=== PATIENT | male | born 1955 | race Asian ===

== ENCOUNTER 2016-10-25 16:52 | Inpatient (IN) | payer SELFPAY ==
[2016-10-24 04:15] VITALS: BP 120/75
[~2016-10-25] VITALS: Ht 175.3 cm; Wt 68.0 kg
--- NOTE | 2016-10-25 16:30 | NUR ---
Report and patient received via emergency personnel. Patient arrived to unit via gurney, in no signs of acute distress. Respirations even and unlabored, no verbalized needs at this time. VS WNL, on RA, AAOx3. Oriented to surroundings and environment. Safety and fall precautions maintained, call light placed within reach. No other needs at this time. Orders placed by Dr. Gutierrez. Dr. Celestine Malik contacted via [employer] hotline, no answer as of now. Will continue to reach out via [employer] hotline.
[2016-10-25] MEDS ORDERED: Z GUARD REMEDY PASTE 57 GM TUBE TOP PRN (17:00)
--- NOTE | 2016-10-25 17:00 | NUR ---
Attempted to reach out to Dr. Celestine Malik for 2nd call regarding medication reconciliation via [employer] group hotline phone number. No answer per hotline, page sent to Dr. Patient in stable condition, no signs of acute distress noted.
[2016-10-25] MEDS ORDERED: NICO1PAT27 TD (17:11)
[2016-10-25] MEDS ORDERED: ASPI-605 PO (17:11)
[2016-10-25] MEDS ORDERED: LISI10TA5 PO (17:11)
[2016-10-25] MEDS ORDERED: HYDR-4075 IVP (17:11)
[2016-10-25] MEDS ORDERED: ALPR0.255 PO (17:11)
[2016-10-25] MEDS ORDERED: ATOR80TA PO (17:11)
[2016-10-25] MEDS ORDERED: LORA0.5T IVP (17:11)
[2016-10-25] MEDS ORDERED: ENOX40DI SQ (17:11)
--- NOTE | 2016-10-25 17:30 | NUR ---
Called house painting instructor Jigna regarding no response from Dr. Celestine Malik about medication reconciliation. [facility] Called hotline for a 3rd attempt to reach the for medication reconciliation. No answer per hotline financial services representative. Page sent out to Dr. Sprague.
--- NOTE | 2016-10-25 18:00 | NUR ---
[facility] group hotline called for a 4th attempt to reach Dr. Celestine Malik regarding medication reconciliation. No answer per hotline strategic partnership representative, page sent out to Dr. Patient in no signs of acute distress, VS WNL. Respirations even and unlabored. Family observed at bedside. No other verbalized needs at this time.
--- NOTE | 2016-10-25 18:30 | NUR ---
[facility] group hotline called for a 5th attempt to reach Dr. Celestine Malik regarding medication reconciliation. No answer per hotline labor service representative, page sent out to
--- NOTE | 2016-10-25 19:30 | NUR ---
Patient is a new admission. Received report from BRITTANY Aguillon. Received patient sitting up in bed on his laptop. Patient is alert, oriented to name and place and able to make needs known. Denies any pain and discomfort at this time. No acute distress. No SOB. Patient is on room air. Patient with diagnosis of R CVA. Left side is affected. Left upper extremity is severely weak. Unable to lift left arm. Left lower extremity is slightly weak. Able to lift left lower leg and move toes with no apparent problems. Noted with left side facial droop. Patient also noted with multiple scabs and bruising on right lower extremity. Dr. Claire in facility. Made aware of medications needing to be reconciled because according to day shift nurse, they were unable to get a hold of Dr. Malik to reconcile medications. Dr. Claire also examined patient. While speaking to patient, patient noted with poor concentration. Patient on laptop and not really paying attention to MD. Asked patient if he can stop what he is doing for now so we can better assess him. Patient is aware of where he is and what happened to him. He is noted to have poor concentration and needs further instructions. Verbalized to patient to use call light when help is needed and showed him what button to press. Patient verbalizes understanding, but forgets to call for help when getting up. Reinforcement provided to patient. All needs attended to promptly. Call light within reach. Will continue to monitor.
[2016-10-25 21:27] VITALS: BP 123/76
[2016-10-25] MEDS: ALPRAZOLAM 0.25 MG TABLET PO SCH (21:40)
[2016-10-25] MEDS: ATORVASTATIN 40 MG TABLET PO SCH (21:40)
--- NOTE | 2016-10-25 21:40 | NUR ---
Patient still awake. Sitting up in bed on his Ipad. Gave his PM medcations. Tolerated well. Patient is on Full liquieds with nectar thick liquids. All needs attended to promptly. Call light within reach. Will continue to monitor.
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
--- NOTE | 2016-10-26 | NUR ---
Patient is asleep and comfortable at this time. Will continue to monitor.
--- NOTE | 2016-10-26 06:55 | NUR ---
Patient still asleep at this time. No acute distress. No SOB. Breathing normally. Kept clean and dry. All needs attended to promptly. Call light within reach. Will continue to monitor.
[2016-10-26 07:02] LABS: BASOPHILS # (AUTO) 0.1 K/uL (0.0-8.0); BASOPHILS % (AUTO) 0.6 % (0.0-2.0); EOSINOPHILS # (AUTO) 0.4 K/uL (0.0-0.7); EOSINOPHILS % (AUTO) 3.6 % (0.0-7.0); HEMATOCRIT 43.7 % (40-50); HEMOGLOBIN 15.2 G/DL (14.0-18.0); LYMPHOCYTES # (AUTO) 1.8 K/UL (0.8-4.8); MEAN CORPUSCULAR HEMOGLOBIN 32.5 UUG (27.0-31.0); MEAN CORPUSCULAR HGB CONC 35 g/dL (32.0-37.0); MEAN CORPUSCULAR VOLUME 93.6 FL (82.0-92.0); MONOCYTES # (AUTO) 0.7 K/UL (0.1-1.30); MONOCYTES % (AUTO) 6.2 % (0.0-11.0); NEUTROPHILS # (AUTO) 7.6 K/UL (1.8-8.9); NEUTROPHILS % (AUTO) 72.6 % (38.5-71.5); PLATELET COUNT (AUTO) 394 K/UL (150-450); RED BLOOD CELL COUNT(AUTO) 4.67 MIL/UL (4.7-6.1); WHITE BLOOD COUNT (AUTO) 10.6 K/UL (4.0-11.2)
--- NOTE | 2016-10-26 07:30 | NUR ---
SPEECH THERAPIST WORKING WITH PATIENT THIS MORNING WITH BREAKFAST.
[2016-10-26 07:35] LABS: CREATININE 0.9 mg/dL (0.6-1.3); MAGNESIUM 1.9 mg/dL (1.8-2.4); PHOSPHOROUS 3.8 mg/dL (2.5-4.9)
[2016-10-26 08:00] VITALS: BP 126/75
[2016-10-26] MEDS: ALPRAZOLAM 0.25 MG TABLET PO SCH ×2 (08:53→21:23)
[2016-10-26] MEDS: ASPIRIN EC 81 MG TABLET.DR PO SCH (08:53)
[2016-10-26] MEDS ORDERED: Medication Not On Formulary EA (Atorvastatin Calcium (Lipitor) 80 MG) PO SCH (09:00)
[2016-10-26] MEDS: LISINOPRIL 10 MG TABLET PO SCH (09:01)
[2016-10-26] MEDS: ENOXAPARIN SODIUM 40 MG/0.4 ML DISP.SYRIN SQ SCH (09:10)
--- NOTE | 2016-10-26 09:20 | NUR ---
PATIENT SITTING AT BEDSIDE ON HIS COMPUTER. PATIENT IS ABLE TO TAKE MEDS CRUSHED SLOWLY.
--- NOTE | 2016-10-26 09:35 | NUR ---
PATIENT IS WALKING AROUND UNIT WITH PT.
--- NOTE | 2016-10-26 09:41 | NUR ---
PT RECOMMEND THAT PATIENT CHANGE ROOM TO APPROACH AND STIMULATE PATIENT ON LEFT SIDE. INFORM CHARGE NURSE PER PT RECOMMENDATIONS.
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
--- NOTE | 2016-10-26 11:57 | NUR ---
Initiated bed transfer as recommended by gardenia campbellhouse detective and qian case repairer. all belongings transferred by PROPAGATION WORKER. moved patient because goes up on his on and unsteady. will follow up with family about bed transfer and recommendations.
--- NOTE | 2016-10-26 15:08 | NUR ---
IDT MEETING 10/26/16
--- NOTE | 2016-10-26 17:42 | NUR ---
Patient sleeping for the past 2 hours. patient now has the dinner tray at bedside try to encourage him to eat. he states he is tired he needs to sleep. ordered patient a sandwich for tonight in case patient gets hungry. Son informed me that he was eating 100% of food in previous hospital.
--- NOTE | 2016-10-26 19:30 | NUR ---
Received report from BRITTANY Ta. Received patient in bed. Son at bedside. Patient is alert and verbally responsive. On phone with with family at this time. Patient in no acute distress. No SOB. Patient on room air. Denies any pain and discomfort at this time. Kept clean and dry. All needs attended to promptly. Call light within reach. Will continue to monitor.
[2016-10-26 20:28] VITALS: BP 112/63
[2016-10-26] MEDS: ATORVASTATIN 40 MG TABLET PO SCH (21:22)
--- NOTE | 2016-10-27 00:52 | NUR ---
Patient noted to be very restless. Tossing and turning in bed and unable to get sleep. Dr. Gutierrez made aware with new orders fro Temazepam 15mg PoO QHS PRN. New orders noted and carried out. Son made aware of sleeping aide. Verbalizes he is okay with medication to help father get some rest. All needs attended to promptly. Call light within reach. Will continue to monitor.
--- NOTE | 2016-10-27 01:00 | NUR ---
Patient actually sleeping well at this time. PRN Temazepam not given. No restlessness noted. All needs attended to promptly. Call light within reach. Will continue to monitor patient.
--- NOTE | 2016-10-27 06:58 | NUR ---
Patient still asleep at this time. No acute distress. No SOB. Patient breathing normally. All needs attended to promptly. Call light within reach. Will continue to monitor.
[2016-10-27 07:52] VITALS: BP 103/60
--- NOTE | 2016-10-27 09:00 | NUR ---
RECEIVED PATIENT ASLEEP. NO S/S OF DISTRESS. CALL LIGHT WITHIN REACH. SIDE RAILS UP X 2
--- NOTE | 2016-10-27 09:30 | NUR ---
ENCOURAGED PATIENT TO VERBALIZE NEEDS AND CALL FOR HELP OR WHEN GOING TO THE BATHROOM. ALERT AND ORIENTED. NO COMPLAINTS OF PAIN OR DISCOMFORT AT THIS TIME.
[2016-10-27] MEDS: ALPRAZOLAM 0.25 MG TABLET PO SCH ×2 (09:53→17:37)
[2016-10-27] MEDS: ASPIRIN EC 81 MG TABLET.DR PO SCH (09:54)
[2016-10-27] MEDS: LISINOPRIL 10 MG TABLET PO SCH (09:54)
[2016-10-27] MEDS: NICOTINE 21 MG/24HR PATCH TD SCH (09:58)
[2016-10-27] MEDS: ENOXAPARIN SODIUM 40 MG/0.4 ML DISP.SYRIN SQ SCH (09:59)
--- NOTE | 2016-10-27 13:15 | NUR ---
TOLERATED LUNCH WELL. MRSA SWAB OF NARES DONE AND SENT TO LAB.
--- NOTE | 2016-10-27 20:00 | NUR ---
Patient in room A/Ox2 ambulating with stand by assist. Has left arm weakness. No distress noted. Provide comfort and safety measures
[2016-10-27 20:25] VITALS: BP 130/65
[2016-10-27] MEDS: ATORVASTATIN 40 MG TABLET PO SCH (20:56)
[2016-10-28 08:00] VITALS: BP 133/79
[2016-10-28] MEDS: ENOXAPARIN SODIUM 40 MG/0.4 ML DISP.SYRIN SQ SCH (09:45)
[2016-10-28] MEDS: NICOTINE 21 MG/24HR PATCH TD SCH (09:47)
[2016-10-28] MEDS: ALPRAZOLAM 0.25 MG TABLET PO SCH ×2 (09:50→17:38)
[2016-10-28] MEDS: LISINOPRIL 10 MG TABLET PO SCH (09:50)
[2016-10-28] MEDS: ASPIRIN EC 81 MG TABLET.DR PO SCH (09:51)
--- NOTE | 2016-10-28 19:30 | NUR ---
Patient resting on bed with no s/s of distress. No complaints of pain at this time. Son at bedside. Call light within reach. Will continue to monitor.
[2016-10-28 20:00] VITALS: BP 142/79
[2016-10-28] MEDS: ATORVASTATIN 40 MG TABLET PO SCH (21:28)
--- NOTE | 2016-10-29 07:07 | NUR ---
Patient slept well throughout the night. Sleeping at this time with no s/s of distress. No complaints of pain throughout the shift. Due meds given. Needs attended. Son stated that patient requests for a bath today. Call light kept within reach. Frequent checks done. Endorsed accordingly.
[2016-10-29 08:00] VITALS: BP 124/76
[2016-10-29] MEDS: LISINOPRIL 10 MG TABLET PO SCH (08:41)
[2016-10-29] MEDS: ALPRAZOLAM 0.25 MG TABLET PO SCH ×2 (08:42→17:00)
[2016-10-29] MEDS: ENOXAPARIN SODIUM 40 MG/0.4 ML DISP.SYRIN SQ SCH (08:42)
[2016-10-29] MEDS: ASPIRIN EC 81 MG TABLET.DR PO SCH (08:42)
[2016-10-29] MEDS: NICOTINE 21 MG/24HR PATCH TD SCH (08:44)
--- NOTE | 2016-10-29 19:30 | NUR ---
Patient resting in bed with no s/s of distress. Respirations even and unlabored. Verbalizes absence of pain at this time. Son at bedside. Call light within reach. Will continue to monitor.
[2016-10-29 20:48] VITALS: BP 143/86
[2016-10-29] MEDS: ATORVASTATIN 40 MG TABLET PO SCH (20:50)
--- NOTE | 2016-10-30 06:46 | NUR ---
Patient still sleeping. Slept well during the night. Not in any acute distress. Kept comfortable. Supervised during ambulation. Call light kept within reach. Frequent checks done. Needs attended. Due meds given. Endorsed accordingly.
[2016-10-30 08:00] VITALS: BP 122/76
[2016-10-30] MEDS: ASPIRIN EC 81 MG TABLET.DR PO SCH (08:55)
[2016-10-30] MEDS: ALPRAZOLAM 0.25 MG TABLET PO SCH ×2 (08:55→17:00)
[2016-10-30] MEDS: LISINOPRIL 10 MG TABLET PO SCH (08:56)
[2016-10-30] MEDS: NICOTINE 21 MG/24HR PATCH TD SCH (09:01)
[2016-10-30] MEDS: ENOXAPARIN SODIUM 40 MG/0.4 ML DISP.SYRIN SQ SCH (09:01)
--- NOTE | 2016-10-30 12:13 | NUR ---
TAX EXAMINER STATES THAT HE IS CONSTIPATED. PT GIVEN PRUNE JUICE AND WALKED WITH FAMILY. WILL CONTINUE TO MONITOR FOR COMPLICATIONS. PT GIVEN BLOOD PRESSURE MEDICATION. BLOOD PRESSURE WITHIN NORMAL LIMITS.
[2016-10-30] MEDS ORDERED: BISACODYL 10 MG SUPP.RECT RC PRN (15:15)
[2016-10-30] MEDS: BISACODYL 10 MG SUPP.RECT RC PRN ×2 (15:36→18:52)
[2016-10-30] MEDS ORDERED: FLEET ENEMA 133 ML BOTTLE RC PRN (19:30)
[2016-10-30] MEDS: ATORVASTATIN 40 MG TABLET PO SCH (21:16)
[2016-10-30] MEDS ORDERED: FLEET ENEMA 133 ML BOTTLE RC ONE (21:16)
[2016-10-31 08:00] VITALS: BP 123/64
[2016-10-31] MEDS: ASPIRIN EC 81 MG TABLET.DR PO SCH (08:48)
[2016-10-31] MEDS: ENOXAPARIN SODIUM 40 MG/0.4 ML DISP.SYRIN SQ SCH (08:52)
[2016-10-31] MEDS: LISINOPRIL 10 MG TABLET PO SCH (08:52)
[2016-10-31] MEDS: NICOTINE 21 MG/24HR PATCH TD SCH (08:53)
[2016-10-31] MEDS: ALPRAZOLAM 0.25 MG TABLET PO SCH ×2 (08:58→16:54)
--- NOTE | 2016-10-31 09:52 | NUR ---
pt refused xanax because pt states that he gets sleepy with med and wants to stay awake with therapy. pt intructed risks of not taking med. pt still refused. will continue to reasses for complications.
--- NOTE | 2016-10-31 17:32 | NUR ---
PT REFUSED XANAX IN THE MORNING. PT ADHERED TO THERAPY AND COMPLAINS OF NO PAIN. PT ALSO HAD A BOWEL MOVEMENT WITH FLUID CONSISTENTSY. PT PROVIDED COMFORT MEASURES. PT IS STILL IMPULSIVE BUT CAREGIVER PROVIDED SUPERVISION. PT STATES HE WANTS XANAX ON THE AFTERNOON. WILL CONTINUE TO ENDORSE MONITORING TO NEXT SHIFT NURSE.
--- NOTE | 2016-10-31 19:20 | NUR ---
Report received from BRITTANY Yeager. Found pt lying on bed correa's position, alert oriented x 3, ambulates independently, however still remind pt to call for assistance, or constantly check on him periodically.Pt has wound on his left knee, black scabbed, kept clean dry and intact.
--- NOTE | 2016-10-31 21:00 | NUR ---
Meds given : Lipitor 80mg/po.
[2016-10-31] MEDS: ATORVASTATIN 40 MG TABLET PO SCH (21:24)
--- NOTE | 2016-11-01 | NUR ---
Asleep and resting comfortably. Continue monitor.
--- NOTE | 2016-11-01 07:00 | NUR ---
Report to BRITTANY bird
[2016-11-01 08:00] VITALS: BP 119/72
[2016-11-01] MEDS: ALPRAZOLAM 0.25 MG TABLET PO SCH ×2 (08:37→17:00)
[2016-11-01] MEDS: ENOXAPARIN SODIUM 40 MG/0.4 ML DISP.SYRIN SQ SCH (08:43)
[2016-11-01] MEDS: NICOTINE 21 MG/24HR PATCH TD SCH (08:43)
[2016-11-01] MEDS: ASPIRIN EC 81 MG TABLET.DR PO SCH (08:43)
[2016-11-01] MEDS: LISINOPRIL 10 MG TABLET PO SCH (08:44)
--- NOTE | 2016-11-01 18:08 | NUR ---
Patient in bed. Patient is alert and oriented x3-4. Patient speaks little Spanish, but can comprehend simple Spanish and can let you know what his needs are. Patient has a caregiver at bedside. No anxiety noted all throughout shift. Patient still has left sided weakness. Physical therapy is working with patient, as well as, speech and occupational therapy. Patient on a mechanical soft diet, tolerating well. No signs and symptoms of aspiration and/or difficulty swallowing noted. Vital signs all within reach. No complaints of pain/discomfort, at this time. Will continue to monitor.
--- NOTE | 2016-11-01 19:30 | NUR ---
SITTING ON BED WITH FAMILY MEMBERS AT BEDSIDE. NO ACUTE DISTRESS NOTED. NO COMPLAINTS OF PAIN NOR DISCOMFORT. NEEDS ATTENDED. WILL CONTINUE TO MONITOR
[2016-11-01] MEDS: ATORVASTATIN 40 MG TABLET PO SCH (20:48)
[2016-11-01 21:45] VITALS: BP 133/76
--- NOTE | 2016-11-02 06:42 | NUR ---
SLEPT INTERMITTENTLY DURING THE SHIFT. NO ACUTE DISTRESS NOTED. ALL DUE MEDS GIVEN ORDERED. STILL NO BM. WILL CONVINCE TO ADMINISTER DULCOLAX SUPPOSITORY ORDERED. SAFETY MAINTAINED. NEEDS ATTENDED. CALL LIGHT WITHIN REACH
--- NOTE | 2016-11-02 06:46 | NUR ---
REFUSED DULCOLAX SUPPOSITORY AT THIS TIME. STATED HE PREFERS IT AFTER LUNCH
[2016-11-02 08:00] VITALS: BP 131/72
[2016-11-02 08:30] LABS: BASOPHILS # (AUTO) 0.2 K/uL (0.0-8.0); BASOPHILS % (AUTO) 1.7 % (0.0-2.0); EOSINOPHILS # (AUTO) 0.5 K/uL (0.0-0.7); EOSINOPHILS % (AUTO) 5.3 % (0.0-7.0); HEMATOCRIT 42.6 % (40-50); HEMOGLOBIN 14.3 G/DL (14.0-18.0); LYMPHOCYTES # (AUTO) 2.5 K/UL (0.8-4.8); LYMPHOCYTES % (AUTO) 25.4 % (20.5-51.5); MEAN CORPUSCULAR HEMOGLOBIN 31.6 UUG (27.0-31.0); MEAN CORPUSCULAR HGB CONC 34 g/dL (32.0-37.0); MEAN CORPUSCULAR VOLUME 94.1 FL (82.0-92.0); MONOCYTES # (AUTO) 0.6 K/UL (0.1-1.30); MONOCYTES % (AUTO) 6.3 % (0.0-11.0); NEUTROPHILS # (AUTO) 6.1 K/UL (1.8-8.9); NEUTROPHILS % (AUTO) 61.3 % (38.5-71.5); PLATELET COUNT (AUTO) 464 K/UL (150-450); RED BLOOD CELL COUNT(AUTO) 4.53 MIL/UL (4.7-6.1); WHITE BLOOD COUNT (AUTO) 9.9 K/UL (4.0-11.2)
--- NOTE | 2016-11-02 08:30 | NUR ---
PT.SLEEPY REFUSED TO EAT BREAKFAST.NO S/S OF ACUTE DISTRESS.
[2016-11-02] MEDS: ALPRAZOLAM 0.25 MG TABLET PO SCH ×2 (09:00→17:00)
[2016-11-02] MEDS: LISINOPRIL 10 MG TABLET PO SCH (09:20)
[2016-11-02] MEDS: ASPIRIN EC 81 MG TABLET.DR PO SCH (09:21)
[2016-11-02] MEDS: ENOXAPARIN SODIUM 40 MG/0.4 ML DISP.SYRIN SQ SCH (09:22)
[2016-11-02] MEDS: NICOTINE 21 MG/24HR PATCH TD SCH (09:22)
--- NOTE | 2016-11-02 11:00 | NUR ---
PT.BALJIT RESPONSIVE FINISH BREAKFAST,NO S/S OF ACUTE DISTRESS.
[2016-11-02 12:16] LABS: BILIRUBIN,TOTAL 0.5 mg/dL (0.2-1.0); CREATININE 0.9 mg/dL (0.6-1.3); PHOSPHOROUS 4.2 mg/dL (2.5-4.9); POTASSIUM 3.8 mmol/L (3.5-5.1)
[2016-11-02 12:40] LABS: THYROID STIMULATING HORMONE 1.41 mIU/mL (0.358-3.740)
--- NOTE | 2016-11-02 14:44 | NUR ---
TEAM CONFERENCE MEETING 11/02/16
--- NOTE | 2016-11-02 17:00 | NUR ---
PT.WAS SEEN BY ,FAMILY AT BEDSIDE UPDATED WITH PT.CONDITION AND PLAN OF CARE.
--- NOTE | 2016-11-02 18:51 | NUR ---
PT.WATCHING TV NO S/S OF ACUTE DISTRESS OR PAIN NOTED.
[2016-11-02 21:06] VITALS: BP 137/78
[2016-11-02] MEDS: ATORVASTATIN 40 MG TABLET PO SCH (21:18)
[2016-11-03] MEDS: TEMAZEPAM 15 MG CAPSULE PO PRN (01:57)
--- NOTE | 2016-11-03 05:31 | NUR ---
PT RESTING QUIETLY AFTER SLEEP AID GIVEN. NAD NOTED
[2016-11-03 08:00] VITALS: BP 126/79
[2016-11-03] MEDS: LISINOPRIL 10 MG TABLET PO SCH (09:07)
[2016-11-03] MEDS: ASPIRIN EC 81 MG TABLET.DR PO SCH (09:07)
[2016-11-03] MEDS: NICOTINE 21 MG/24HR PATCH TD SCH (09:07)
[2016-11-03] MEDS: ENOXAPARIN SODIUM 40 MG/0.4 ML DISP.SYRIN SQ SCH (09:08)
[2016-11-03] MEDS: ATORVASTATIN 40 MG TABLET PO SCH (21:13)
[2016-11-03 21:46] VITALS: BP 143/72
--- NOTE | 2016-11-04 05:33 | NUR ---
Patient slept intermittently throughout the night, showed no signs of pain or discomfort. No signs of respiratory distress, call light within reach, all needs attended to.
[2016-11-04] MEDS: ENOXAPARIN SODIUM 40 MG/0.4 ML DISP.SYRIN SQ SCH (08:43)
[2016-11-04] MEDS: ASPIRIN EC 81 MG TABLET.DR PO SCH (08:43)
[2016-11-04] MEDS: LISINOPRIL 10 MG TABLET PO SCH (08:43)
[2016-11-04] MEDS: NICOTINE 21 MG/24HR PATCH TD SCH (08:43)
[2016-11-04 11:21] VITALS: BP 125/88
[2016-11-04] MEDS: ATORVASTATIN 40 MG TABLET PO SCH (21:19)
[2016-11-04] MEDS: TEMAZEPAM 15 MG CAPSULE PO PRN (21:19)
[2016-11-05 01:15] VITALS: BP 132/85
[2016-11-05 08:34] VITALS: BP 115/82
[2016-11-05] MEDS: ASPIRIN EC 81 MG TABLET.DR PO SCH (11:35)
[2016-11-05] MEDS: LISINOPRIL 10 MG TABLET PO SCH (11:36)
[2016-11-05] MEDS: ENOXAPARIN SODIUM 40 MG/0.4 ML DISP.SYRIN SQ SCH (11:39)
[2016-11-05] MEDS: NICOTINE 21 MG/24HR PATCH TD SCH (11:39)
[2016-11-05] MEDS ORDERED: ACETAMINOPHEN 325 MG TABLET PO PRN (15:00)
[2016-11-05] MEDS ORDERED: ACETAMINOPHEN ES 500 MG TABLET PO PRN (15:15)
--- NOTE | 2016-11-05 18:24 | NUR ---
Patient quiet but no signs of confusion noted throughout day shift. construction trades teacher at bedside attending to patients needs. Worked with physical therapy, walked with cane. Family came this afternoon and [facility]. Patient now resting, watching TV, denies pain/discomfort at this time.
[2016-11-05] MEDS: ATORVASTATIN 40 MG TABLET PO SCH (20:44)
[2016-11-05] MEDS: TEMAZEPAM 15 MG CAPSULE PO PRN (20:44)
[2016-11-05 21:24] VITALS: BP 127/78
--- NOTE | 2016-11-06 06:46 | NUR ---
Patient slept well all night, showed no signs of pain or discomfort, no signs of respiratory distress.
--- NOTE | 2016-11-06 07:30 | NUR ---
RECEIVED REPORT FROM PRESSING DEPARTMENT SUPERVISOR NURSE, PATIENT IN BED, BED IN LOW POSITION, SIDE RAILS UP X2
[2016-11-06] MEDS: LISINOPRIL 10 MG TABLET PO SCH (09:04)
[2016-11-06] MEDS: NICOTINE 21 MG/24HR PATCH TD SCH (09:05)
[2016-11-06] MEDS: ASPIRIN EC 81 MG TABLET.DR PO SCH (09:06)
[2016-11-06] MEDS: ENOXAPARIN SODIUM 40 MG/0.4 ML DISP.SYRIN SQ SCH (09:06)
--- NOTE | 2016-11-06 18:29 | NUR ---
Patient cooperative with no signs of confusion noted throughout day shift. No evidence of SOB, Distress or pain noted this shift. Patient now resting, watching TV.
[2016-11-06 20:30] VITALS: BP 113/66
[2016-11-06] MEDS: TEMAZEPAM 15 MG CAPSULE PO PRN (21:20)
[2016-11-06] MEDS: ATORVASTATIN 40 MG TABLET PO SCH (21:20)
--- NOTE | 2016-11-07 06:05 | NUR ---
Patient awake and able to let needs known. Slept very little at night, was constantly getting out of bed. Denies and pain or discomfort. No signs of respiratory distress. Has call light within reach.
[2016-11-07 08:00] VITALS: BP 122/79
[2016-11-07] MEDS: ASPIRIN EC 81 MG TABLET.DR PO SCH (08:53)
[2016-11-07] MEDS: NICOTINE 21 MG/24HR PATCH TD SCH (08:53)
[2016-11-07] MEDS: LISINOPRIL 10 MG TABLET PO SCH (08:53)
[2016-11-07] MEDS: ENOXAPARIN SODIUM 40 MG/0.4 ML DISP.SYRIN SQ SCH (08:54)
--- NOTE | 2016-11-07 19:30 | NUR ---
Received patient resting in bed, no s/s of distress. No complaints of pain at this time. Call light within reach. Reminded to call for help whenever needed. Will continue to monitor.
[2016-11-07] MEDS: ATORVASTATIN 40 MG TABLET PO SCH (21:00)
--- NOTE | 2016-11-08 06:43 | NUR ---
Patient still asleep. No complaints of pain during shift. No acute distress noted. Needs attended. Due meds given. Kept in a comfortable position. Supervised during ambulation and all through waking hours. Safety precautions in place. Frequent checks done. Endorsed accordingly.
[2016-11-08 08:00] VITALS: BP 138/80
[2016-11-08] MEDS: ASPIRIN EC 81 MG TABLET.DR PO SCH (08:54)
[2016-11-08] MEDS: LISINOPRIL 10 MG TABLET PO SCH (08:54)
[2016-11-08] MEDS: ENOXAPARIN SODIUM 40 MG/0.4 ML DISP.SYRIN SQ SCH (08:55)
[2016-11-08] MEDS: NICOTINE 21 MG/24HR PATCH TD SCH (08:55)
--- NOTE | 2016-11-08 18:07 | NUR ---
Resting comfortably in bed in low position, locked in place. Denies any pain/discomfort at this time. No resp distress noted. Encouraged to call for any assistance, call light within reach. Will continue to monitor.
--- NOTE | 2016-11-08 19:30 | NUR ---
Patient resting on his bed. No s/s of distress. Respirations even and unlabored. Reminded to call for help whenever necessary. Call light within reach. Will continue to monitor.
[2016-11-08] MEDS: ATORVASTATIN 40 MG TABLET PO SCH (21:27)
[2016-11-08 22:24] VITALS: BP 133/85
[2016-11-09 07:13] LABS: BASOPHILS # (AUTO) 0.1 K/uL (0.0-8.0); BASOPHILS % (AUTO) 0.7 % (0.0-2.0); EOSINOPHILS # (AUTO) 0.5 K/uL (0.0-0.7); EOSINOPHILS % (AUTO) 4.4 % (0.0-7.0); HEMATOCRIT 42.2 % (40-50); HEMOGLOBIN 14.2 G/DL (14.0-18.0); LYMPHOCYTES # (AUTO) 3.1 K/UL (0.8-4.8); MEAN CORPUSCULAR HEMOGLOBIN 31.5 UUG (27.0-31.0); MEAN CORPUSCULAR HGB CONC 34 g/dL (32.0-37.0); MEAN CORPUSCULAR VOLUME 93.6 FL (82.0-92.0); MONOCYTES # (AUTO) 0.5 K/UL (0.1-1.30); MONOCYTES % (AUTO) 4.8 % (0.0-11.0); NEUTROPHILS # (AUTO) 7.2 K/UL (1.8-8.9); NEUTROPHILS % (AUTO) 63.1 % (38.5-71.5); PLATELET COUNT (AUTO) 429 K/UL (150-450); RED BLOOD CELL COUNT(AUTO) 4.51 MIL/UL (4.7-6.1); WHITE BLOOD COUNT (AUTO) 11.4 K/UL (4.0-11.2)
--- NOTE | 2016-11-09 07:15 | NUR ---
Patient still asleep. No s/s of distress. No complaints of pain at this time. Slept intermittently. Supervised during ambulation. Due meds given. Needs attended. Comfort measures provided. Call light kept within reach. Safety precautions in place. Frequent checks done. Endorsed accordingly.
[2016-11-09 07:30] LABS: CREATININE 0.9 mg/dL (0.6-1.3); MAGNESIUM 1.9 mg/dL (1.8-2.4); POTASSIUM 3.9 mmol/L (3.5-5.1)
[2016-11-09 08:25] VITALS: BP 101/61
[2016-11-09] MEDS: NICOTINE 21 MG/24HR PATCH TD SCH (08:52)
[2016-11-09] MEDS: ENOXAPARIN SODIUM 40 MG/0.4 ML DISP.SYRIN SQ SCH (08:52)
[2016-11-09] MEDS: ASPIRIN EC 81 MG TABLET.DR PO SCH (08:53)
[2016-11-09] MEDS: LISINOPRIL 10 MG TABLET PO SCH (08:56)
--- NOTE | 2016-11-09 10:28 | NUR ---
RECEIVED PATIENT AWAKE SITTING IN BED EATING BREAKFAST. CONSUMED BREAKFAST 100%. ALERT AND ORIENTED X4. NO COMPLAINTS OF PAIN. NOT IN ANY FORM OF DISTRESS. CALL LIGHT WITHIN REACH.
--- NOTE | 2016-11-09 14:00 | NUR ---
Tolerated therapy well. No S/S of distress. With pain over eye area and tolerable head ache. Offered pain medications but refused
--- NOTE | 2016-11-09 14:54 | NUR ---
REHAB TEAM CONFERENCE MEETING 11/09/16
--- NOTE | 2016-11-09 18:00 | NUR ---
Informed Dr. Dex Malik about eye pain and headache. Plain CT scan of head ordered.
--- NOTE | 2016-11-09 19:30 | NUR ---
PT IN NAD; VSS; PT IS A/OX4; COMPLAINS OF LT EYE PAIN 07/22; CT HEAD IS ORDERED AND HIDE HOUSE SUPERVISOR CALLED. NO OTHER COMPLAINTS
--- NOTE | 2016-11-09 20:50 | NUR ---
PT IS BACK FROM CT SCAN
[2016-11-09 20:52] VITALS: BP 146/82
--- NOTE | 2016-11-09 21:45 | NUR ---
PT TRANSFERRED TO ED FOR FURTHER EVAL FOR ABNORMAL CT; PER ORDER
[2016-11-10 20:00] VITALS: BP 138/83
[2016-11-10] MEDS ORDERED: Z GUARD REMEDY PASTE 57 GM TUBE TOP PRN (21:15)
[2016-11-10] MEDS ORDERED: FLEET ENEMA 133 ML BOTTLE RC PRN (21:15)
[2016-11-10] MEDS ORDERED: ACETAMINOPHEN ES 500 MG TABLET PO PRN (21:15)
[2016-11-10] MEDS ORDERED: BISACODYL 10 MG SUPP.RECT RC PRN (21:15)
[2016-11-10] MEDS: ATORVASTATIN 40 MG TABLET PO SCH (21:57)
[2016-11-10] MEDS ORDERED: ATORVASTATIN 40 MG TABLET ONE (22:08)
--- NOTE | 2016-11-11 06:19 | NUR ---
PT AWAKE MOST OF NIGHT; SLEPT ~2HRS; UP TO RESTROOM MULTIPLE TIMES THROUGHOUT NIGHT. REDIRECTABLE; WILL PASS ON TO DAY SHIFT NURSE THE NEED FOR A SLEEPING AID PRN
[2016-11-11 08:33] VITALS: BP 108/80
[2016-11-11] MEDS: ASPIRIN EC 81 MG TABLET.DR PO SCH (09:18)
[2016-11-11] MEDS: NICOTINE 21 MG/24HR PATCH TD SCH (09:18)
[2016-11-11] MEDS: LISINOPRIL 10 MG TABLET PO SCH (09:19)
[2016-11-11] MEDS: ENOXAPARIN SODIUM 40 MG/0.4 ML DISP.SYRIN SQ SCH (09:20)
[2016-11-11 20:00] VITALS: BP 117/79
[2016-11-11 20:54] VITALS: BP 117/79
[2016-11-11] MEDS ORDERED: ATORVASTATIN 40 MG TABLET PO SCH (21:00)
[2016-11-11] MEDS: ATORVASTATIN 40 MG TABLET PO SCH (21:30)
[2016-11-12] MEDS: ASPIRIN EC 81 MG TABLET.DR PO SCH (08:10)
[2016-11-12] MEDS: NICOTINE 21 MG/24HR PATCH TD SCH (08:15)
[2016-11-12] MEDS: LISINOPRIL 10 MG TABLET PO SCH (08:15)
[2016-11-12] MEDS: ENOXAPARIN SODIUM 40 MG/0.4 ML DISP.SYRIN SQ SCH (08:39)
[2016-11-12 11:43] VITALS: BP 111/67
[2016-11-12 20:00] VITALS: BP 122/72
[2016-11-12] MEDS: ATORVASTATIN 40 MG TABLET PO SCH (20:34)
[2016-11-13 08:00] VITALS: BP 121/64
[2016-11-13 08:40] LABS: BASOPHILS # (AUTO) 0.1 K/uL (0.0-8.0); BASOPHILS % (AUTO) 0.9 % (0.0-2.0); EOSINOPHILS # (AUTO) 0.4 K/uL (0.0-0.7); EOSINOPHILS % (AUTO) 3.7 % (0.0-7.0); HEMATOCRIT 40.1 % (40-50); HEMOGLOBIN 13.8 G/DL (14.0-18.0); LYMPHOCYTES # (AUTO) 2.5 K/UL (0.8-4.8); MEAN CORPUSCULAR HEMOGLOBIN 32.2 UUG (27.0-31.0); MEAN CORPUSCULAR HGB CONC 34 g/dL (32.0-37.0); MEAN CORPUSCULAR VOLUME 93.8 FL (82.0-92.0); MONOCYTES # (AUTO) 0.6 K/UL (0.1-1.30); MONOCYTES % (AUTO) 5.5 % (0.0-11.0); NEUTROPHILS % (AUTO) 65.9 % (38.5-71.5); PLATELET COUNT (AUTO) 352 K/UL (150-450); RED BLOOD CELL COUNT(AUTO) 4.27 MIL/UL (4.7-6.1); WHITE BLOOD COUNT (AUTO) 10.6 K/UL (4.0-11.2)
[2016-11-13] MEDS: ASPIRIN EC 81 MG TABLET.DR PO SCH (09:24)
[2016-11-13] MEDS: LISINOPRIL 10 MG TABLET PO SCH (09:24)
[2016-11-13] MEDS: ENOXAPARIN SODIUM 40 MG/0.4 ML DISP.SYRIN SQ SCH (09:25)
[2016-11-13] MEDS: NICOTINE 21 MG/24HR PATCH TD SCH (09:26)
--- NOTE | 2016-11-13 18:48 | NUR ---
pt still impulsive. continued to monitor pt throughout the day for confusion and impulsive ness. pt found turning off bed alarm. pt still states that he does not like lovenox shots but understands the importance of medication adherence. pt slept interminently throughout the day. pt had a shower. continued to take meds as prescribed. will continue to endorse fall precautions to the next shift.
--- NOTE | 2016-11-13 19:00 | NUR ---
PATIENT IN BED, NO SOB NO CHEST PAIN NOTED, PATIENT STAY IN HIS ROOM , ASSISTED WITH TOILETING, NO COMPLAIN OF PAIN AT THIS TIME.
[2016-11-13 20:26] VITALS: BP 131/77
[2016-11-13] MEDS: ATORVASTATIN 40 MG TABLET PO SCH (21:08)
--- NOTE | 2016-11-14 06:42 | NUR ---
PATIENT SLEPT MOST OF THE NIGHT, NO SOB NO CHEST PAIN, ASSISTED WITH TOILETING, CONTINUE TO MONITOR.
[2016-11-14 07:40] VITALS: BP 102/62
[2016-11-14] MEDS: NICOTINE 21 MG/24HR PATCH TD SCH (10:12)
[2016-11-14] MEDS: ASPIRIN EC 81 MG TABLET.DR PO SCH (10:13)
[2016-11-14] MEDS: LISINOPRIL 10 MG TABLET PO SCH (10:21)
[2016-11-14] MEDS: ENOXAPARIN SODIUM 40 MG/0.4 ML DISP.SYRIN SQ SCH (10:21)
--- NOTE | 2016-11-14 19:03 | NUR ---
pt had no complications during day shift. patient had some improvements in walking. pt had bed alarms on but continued to turn it off on his own. will continue to endorse fall precautions to the patient.
--- NOTE | 2016-11-14 19:10 | NUR ---
PATIENT AWAKE, VERBALLY RESPONSIVE, PATIENT SEATS ON THE CHAIR AND PLAY WITH HIS TABLET, CONTINENT OF BOWEL AND BLADDER, ASSIST WITH TOILETING. BED ALARM WAS TURNED ON FOR SAFETY, CONTINUE TO ORIENT TO USE THE CALL LIGHTS.
[2016-11-14 20:26] VITALS: BP 134/74
[2016-11-14] MEDS: ATORVASTATIN 40 MG TABLET PO SCH (21:40)
--- NOTE | 2016-11-15 05:41 | NUR ---
PATIENT SLEPT MOST OF THE NIGHT, ASSISTED WITH TOILETING, NO SOB NO CHEST PAIN NOTED, PATIENT COOPERATIVE WITH CARE AT THIS TIME.
[2016-11-15 08:00] VITALS: BP 103/52
[2016-11-15] MEDS: ASPIRIN EC 81 MG TABLET.DR PO SCH (08:51)
[2016-11-15 08:52] VITALS: BP 103/52
[2016-11-15] MEDS: NICOTINE 21 MG/24HR PATCH TD SCH (08:52)
[2016-11-15] MEDS: LISINOPRIL 10 MG TABLET PO SCH (08:52)
[2016-11-15] MEDS: ENOXAPARIN SODIUM 40 MG/0.4 ML DISP.SYRIN SQ SCH (08:53)
--- NOTE | 2016-11-15 15:15 | NUR ---
Patients' afternoon P/T complete. Son at bedside. Reviewed all discharge instructions, prescriptions, medications and belonging sheet. Patient signed appropriately. Reviewed low salt diet and importance of hydration. RX and all paperwork given to son. All questions answered, pharmacist here to review medications. Son verbalized understanding. Patients VSS, denies any pain/discomfort at this time. Caregiver assisted with packing of belongings, phone and pipe fitter helper included. Patient taken out to car via W/C per RAMESH Collins.
== END 2016-11-15 15:15 | disposition home or self-care (01) | DRG 56 ==
LOC: UNDODISIN 11-09 21:45
PROVIDERS: ADMIT Physical Medicine & Rehabilitation Pain Medicine; ATTEND Physical Medicine & Rehabilitation Pain Medicine
DX: I69.354 Hemiplegia and hemiparesis following cerebral infarction affecting left non-dominant side (principal); G93.40 Encephalopathy, unspecified; D68.59 Other primary thrombophilia; S80.11XD Contusion of right lower leg, subsequent encounter; V89.2XXD Person injured in unspecified motor-vehicle accident, traffic, subsequent encounter; D72.829 Elevated white blood cell count, unspecified; D75.89 Other specified diseases of blood and blood-forming organs; E78.5 Hyperlipidemia, unspecified; F41.9 Anxiety disorder, unspecified; I10 Essential (primary) hypertension; R29.810 Facial weakness; R26.9 Unspecified abnormalities of gait and mobility
CPT/HCPCS: 36415; 70030-TC; 70450; 82306; 83735; 84100; 84443; 85025; 92507; 92523; 92526; 92610; 97110; 97112; 97116; 97161; 97530; 97535; A4663; J1650

== ENCOUNTER 2016-11-09 22:05 | Inpatient (IN) | payer SELFPAY ==
[~2016-11-09] VITALS: Ht 172.7 cm; Wt 68.2 kg
[~2016-11-09 22:05] MED LIST: ALPR0.255 PO; ASPI-605 PO; ATOR80TA PO; ENOX40DI SQ; LISI10TA5 PO; LORA0.5T IVP; NICO1PAT27 TD
--- NOTE | 2016-11-09 22:09 | NUR ---
Per Dr James Rogers, patient does not qualify as a Code Stroke status
[2016-11-09 23:15] LABS: BASOPHILS # (AUTO) 0.1 K/uL (0.0-8.0); BASOPHILS % (AUTO) 0.6 % (0.0-2.0); EOSINOPHILS # (AUTO) 0.2 K/uL (0.0-0.7); EOSINOPHILS % (AUTO) 1.6 % (0.0-7.0); HEMATOCRIT 42.6 % (40-50); HEMOGLOBIN 14.1 G/DL (14.0-18.0); LYMPHOCYTES # (AUTO) 3.1 K/UL (0.8-4.8); LYMPHOCYTES % (AUTO) 21.9 % (20.5-51.5); MEAN CORPUSCULAR HEMOGLOBIN 30.5 UUG (27.0-31.0); MEAN CORPUSCULAR HGB CONC 33 g/dL (32.0-37.0); MEAN CORPUSCULAR VOLUME 92.4 FL (82.0-92.0); MONOCYTES # (AUTO) 0.5 K/UL (0.1-1.30); MONOCYTES % (AUTO) 3.2 % (0.0-11.0); NEUTROPHILS # (AUTO) 10.2 K/UL (1.8-8.9); NEUTROPHILS % (AUTO) 72.7 % (38.5-71.5); PLATELET COUNT (AUTO) 380 K/UL (150-450); RED BLOOD CELL COUNT(AUTO) 4.61 MIL/UL (4.7-6.1); WHITE BLOOD COUNT (AUTO) 14.1 K/UL (4.0-11.2)
[2016-11-09 23:17] LABS: BILIRUBIN,DIRECT 0.1 mg/dL (0.0-0.2); BILIRUBIN,TOTAL 0.5 mg/dL (0.2-1.0); POTASSIUM 3.9 mmol/L (3.5-5.1); TOTAL PROTEIN, SERUM 7.4 g/dL (6.4-8.2)
[2016-11-09] MEDS ORDERED: ALPRAZOLAM 0.25 MG TABLET PO PRN (23:45)
[2016-11-09] MEDS ORDERED: Z GUARD REMEDY PASTE 57 GM TUBE TOP PRN (23:45)
[2016-11-09] MEDS ORDERED: ZOLPIDEM 5 MG TABLET PO PRN (23:45)
[2016-11-09] MEDS ORDERED: ONDANSETRON 4 MG/2 ML VIAL IV PRN (23:45)
[2016-11-09] MEDS ORDERED: HYDROCODONE/APAP 5-325MG TABLET PO PRN (23:45)
[2016-11-09] MEDS ORDERED: LORAZEPAM 0.5 MG TABLET PO PRN (23:45)
[2016-11-09] MEDS ORDERED: ACETAMINOPHEN 325 MG TABLET PO PRN (23:45)
[2016-11-09] MEDS ORDERED: MAGNESIUM HYDROXIDE 30 ML LIQUID UDC PO PRN (23:45)
[2016-11-09 23:50] VITALS: BP 123/76
--- NOTE | 2016-11-09 23:54 | NUR ---
RECEIVED PATIENT FROM ER VIA [facility]RE[facility]. PATIENT IS A&O X'S 4. USHERED TO ROOM. SAFETY INITIATED. TELE SR WITH PVC. NO ACUTE DISTRESS NOTED. ASSESSMENT DONE. ABLE TO PROVIDE HISTORY. ABLE TO MAKE NEEDS KNOWN. CALL LIGHT WITHIN REACH. WILL REVIEW DOCTOR'S ORDERS. WILL CONTINUE TO MONITOR.
--- NOTE | 2016-11-09 23:57 | NUR ---
Pt. admitted to Telemetry , under care of Dr. Celestine Malik. Dx: [place]. Patient does not qualify for Code Stroke, Not qualified for TPA. Patient has history of old stroke on October 16 2016. Belongs List completed. MRSA swab complete.
[2016-11-10] MEDS ORDERED: ZOLPIDEM 5 MG TABLET ONE (01:44)
[2016-11-10 04:00] VITALS: BP 128/72
[2016-11-10] MEDS ORDERED: PANTOPRAZOLE SODIUM 40 MG TABLET.DR PO SCH (07:00)
[2016-11-10 07:02] LABS: BASOPHILS # (AUTO) 0.1 K/uL (0.0-8.0); BASOPHILS % (AUTO) 1.1 % (0.0-2.0); EOSINOPHILS # (AUTO) 0.3 K/uL (0.0-0.7); EOSINOPHILS % (AUTO) 2.6 % (0.0-7.0); HEMATOCRIT 41.5 % (40-50); HEMOGLOBIN 14.4 G/DL (14.0-18.0); LYMPHOCYTES % (AUTO) 25.7 % (20.5-51.5); MEAN CORPUSCULAR HEMOGLOBIN 32.3 UUG (27.0-31.0); MEAN CORPUSCULAR HGB CONC 35 g/dL (32.0-37.0); MEAN CORPUSCULAR VOLUME 93.1 FL (82.0-92.0); MONOCYTES # (AUTO) 0.6 K/UL (0.1-1.30); MONOCYTES % (AUTO) 5.5 % (0.0-11.0); NEUTROPHILS # (AUTO) 7.7 K/UL (1.8-8.9); NEUTROPHILS % (AUTO) 65.1 % (38.5-71.5); PLATELET COUNT (AUTO) 408 K/UL (150-450); RED BLOOD CELL COUNT(AUTO) 4.46 MIL/UL (4.7-6.1); WHITE BLOOD COUNT (AUTO) 11.7 K/UL (4.0-11.2)
[2016-11-10 07:20] LABS: MAGNESIUM 1.9 mg/dL (1.8-2.4); PHOSPHOROUS 4.3 mg/dL (2.5-4.9); POTASSIUM 3.9 mmol/L (3.5-5.1)
--- NOTE | 2016-11-10 07:25 | NUR ---
PATIENT HAD A DIFFICULT TIME FALLING ASLEEP. GIVEN AMBIEN 5 MG. INSOMNIA WAS CORRECTED. PATIENT PULLED OUT IV THAT WAS STARTED IN ER AROUND 0025, RE-INSERTED IN THE RIGHT WRIST #20. NO ACUTE DISTRESS NOTED. TELE SR WITH PVC HR AT 68. SAFETY AND COMFORT MEASURES MAINTAINED T/O SHIFT. ALL NEEDS MET. CALL LIGHT WITHIN REACH.
[2016-11-10 07:29] LABS: THYROID STIMULATING HORMONE 1.63 mIU/mL (0.358-3.740)
[2016-11-10] MEDS ORDERED: LISINOPRIL 10 MG TABLET PO SCH (09:00)
[2016-11-10] MEDS ORDERED: NICOTINE 14 MG/24HR PATCH TD SCH (09:00)
[2016-11-10] MEDS ORDERED: NICOTINE 21 MG/24HR PATCH TD SCH (09:00)
[2016-11-10] MEDS ORDERED: ASPIRIN EC 325 MG TABLET.DR PO SCH (11:30)
[2016-11-10] MEDS ORDERED: ASPIRIN EC 81 MG TABLET.DR PO SCH (12:00)
[2016-11-10 12:20] VITALS: BP 123/77
[2016-11-10 16:16] VITALS: BP 121/78
--- NOTE | 2016-11-10 18:40 | NUR ---
Patient was discharge to Acute Rehab this evening. All belongings taken with patient.
[2016-11-10] MEDS ORDERED: ATORVASTATIN 40 MG TABLET PO SCH (21:00)
== END 2016-11-10 18:45 | DRG 56 ==
LOC: ER 22:06 → TELE 23:36
PROVIDERS: ATTEND Contractor
DX: I69.354 Hemiplegia and hemiparesis following cerebral infarction affecting left non-dominant side (principal); G93.40 Encephalopathy, unspecified; D68.59 Other primary thrombophilia; I67.89 Other cerebrovascular disease; I11.9 Hypertensive heart disease without heart failure; G93.89 Other specified disorders of brain; E78.5 Hyperlipidemia, unspecified; Z74.09 Other reduced mobility; D72.829 Elevated white blood cell count, unspecified; D50.9 Iron deficiency anemia, unspecified; Z72.0 Tobacco use; H57.12 Ocular pain, left eye
CPT/HCPCS: 36415; 70030-TC; 71010; 83605; 83735; 84100; 84443; 85025; 85730; 87040; 93005; 93307; 93880; 97161; A4663